=== PATIENT | male | born 1975 | race Caucasian/White ===

== ENCOUNTER 2017-09-07 15:28 | Emergency (ER) | payer SELFPAY ==
[~2017-09-07] VITALS: Ht 170.2 cm; Wt 72.6 kg
[2017-09-07 15:59] VITALS: BP 135/95
[2017-09-07] MEDS ORDERED: cefTRIAXone SOD 1,000 MG VL IM ONE (17:30)
== END 2017-09-07 17:59 | disposition home or self-care (01) ==
LOC: ER 15:32
DX: L02.414 Cutaneous abscess of left upper limb (principal); F17.210 Nicotine dependence, cigarettes, uncomplicated; Z59.0 Homelessness
CPT/HCPCS: 96372; 99283; J0696

== ENCOUNTER 2017-12-03 21:18 | Emergency (ER) | payer SELFPAY ==
[~2017-12-03] VITALS: Ht 170.2 cm; Wt 70.3 kg
[2017-12-03 21:51] VITALS: BP 146/89
[2017-12-04] MEDS ORDERED: cefTRIAXone SOD 1,000 MG VL IM ONE (05:30)
[2017-12-04] MEDS ORDERED: HYDROcodone-ACET 10/325MG TAB PO ONE (06:00)
[2017-12-04] MEDS ORDERED: TETANUS-DIPTH-ACEL PERTUSSIS 0.5ML SYRG IM ONE (06:00)
== END 2017-12-04 06:07 | disposition home or self-care (01) ==
LOC: ER 21:18
DX: L03.011 Cellulitis of right finger (principal); F17.210 Nicotine dependence, cigarettes, uncomplicated; F12.10 Cannabis abuse, uncomplicated
CPT/HCPCS: 73130; 73200; 90471; 90715; 96372; 99284; J0696

== ENCOUNTER 2017-12-04 18:53 | Emergency (ER) | payer SELFPAY ==
[~2017-12-04] VITALS: Ht 167.6 cm; Wt 68.0 kg
[2017-12-04 19:15] VITALS: BP 141/99
[2017-12-04] MEDS ORDERED: LIDOCAINE 2% (LOCAL ANESTH.) PF 5ml SDV ONE ×2 (19:55→20:00)
[2017-12-04] MEDS ORDERED: cefTRIAXone SOD 1,000 MG VL IM ONE (20:00)
== END 2017-12-04 20:45 | disposition home or self-care (01) ==
LOC: ER 18:53
DX: L03.011 Cellulitis of right finger (principal); F17.210 Nicotine dependence, cigarettes, uncomplicated; F12.10 Cannabis abuse, uncomplicated; F15.10 Other stimulant abuse, uncomplicated; Z59.0 Homelessness
CPT/HCPCS: 10060; 96372; 99283; J0696

== ENCOUNTER 2017-12-06 04:12 | Emergency (ER) | payer SELFPAY ==
[~2017-12-06] VITALS: Ht 167.6 cm; Wt 69.9 kg
[2017-12-06 06:14] LABS: Basophils # (auto) 0.1 uL; Basophils % (auto) 0.8 % (0.0-2.0); Eosinophils # (auto) 0.1 uL; Eosinophils % (auto) 1.7 % (0.0-7.0); Hematocrit 42.1 % (41.0-53.0); Lymphocytes # (auto) 1.7 uL; Lymphocytes % (auto) 23.1 % (10.0-50.0); Mean Corpuscular Hemoglobin 32.7 pg (28.0-32.0); Mean Corpuscular Hgb Conc. 35.6 g/dL (32.0-36.0); Mean Corpuscular Volume 91.8 fL (80.0-100.0); Monocytes # (auto) 0.7 uL; Monocytes % (auto) 9.5 % (0.0-12.0); Neutrophils # (auto) 4.7 uL; Neutrophils % (auto) 64.9 % (37.0-80.0); Nucleated Red Blood Cells % 0.1 %; Platelet Count (auto) 301 10^3/uL (140-450); Red Blood Cells 4.59 10^6/uL (4.5-5.90); Red Cell Distribution Width 12.9 % (11.8-14.3); White Blood Cell 7.2 10^3/uL (4.4-10.8)
[2017-12-06 06:36] LABS: Albumin 3.4 g/dL (3.4-5.0); BUN/Creatinine Ratio 9.7; Bilirubin, Total 0.6 mg/dL (0.2-1.0); Calcium 8.6 mg/dL (8.5-10.1); Potassium 3.5 mmol/L (3.5-5.1); Total Protein 7.1 g/dL (6.4-8.2)
[2017-12-06] MEDS ORDERED: SODIUM CHLORIDE 0.9% 1,000 ML IV ONE ×2 (07:38)
[2017-12-06] MEDS ORDERED: CLINDAMYCIN 900MG IV 50 ML IV ONE (07:45)
[2017-12-06] MEDS ORDERED: cefTRIAXone 1GM/10ml IVPUSH 10 ML IV ONE (07:45)
[2017-12-06] MEDS ORDERED: IOHEXOL 300 MG/ML 75ml BOTTLE IJ ONE (08:14)
[2017-12-06 09:25] LABS: Lactic Acid w/Reflex 2.8 mmol/L (0.4-2.0)
[2017-12-06 10:00] VITALS: BP 138/90
== END 2017-12-06 10:27 | disposition left against medical advice (07) ==
LOC: ER 04:22
DX: L03.113 Cellulitis of right upper limb (principal); F17.210 Nicotine dependence, cigarettes, uncomplicated; F12.10 Cannabis abuse, uncomplicated; F15.10 Other stimulant abuse, uncomplicated; Z53.29 Procedure and treatment not carried out because of patient's decision for other reasons
CPT/HCPCS: 36415; 73140; 73201; 80053; 83605; 85025; 87040; 96365; 96366; 96375; 99285; J3490; J7030; Q9967

== ENCOUNTER 2018-12-20 14:00 | Emergency (ER) | payer MEDICAID ==
[~2018-12-20] VITALS: Ht 170.2 cm; Wt 72.6 kg
[2018-12-20 14:57] VITALS: BP 150/97
== END 2018-12-20 15:38 | disposition home or self-care (01) ==
LOC: ER 14:03
DX: R07.81 Pleurodynia (principal); F17.210 Nicotine dependence, cigarettes, uncomplicated; F12.10 Cannabis abuse, uncomplicated; F15.10 Other stimulant abuse, uncomplicated; Z59.0 Homelessness; F41.9 Anxiety disorder, unspecified; F32.9 Major depressive disorder, single episode, unspecified; F20.9 Schizophrenia, unspecified
CPT/HCPCS: 71101